=== PATIENT | female | born 1985 | race Caucasian/White ===

== ENCOUNTER 2024-12-22 13:18 | Observation (INO) | payer BC, OTHER, SELFPAY ==
[2024-12-22 13:39] VITALS: BP 111/58; PULSE 96
[2024-12-22 13:56] LABS: ROM Kit Lot # 57807112; ROM Swab Mixed By: GARCN1; Swb Mxed in Solvent 1 min? Yes
[2024-12-22 14:00] VITALS: BMI 33.6
[2024-12-22 14:02] VITALS: BP 111/58; PULSE 96; RESP 17; RESP 99; TEMP 36.9
[2024-12-22 14:05] LABS: Rupture of Fetal Membranes Negative (Negative)
== END 2024-12-22 14:27 | disposition home or self-care (01) ==
PROVIDERS: Admitting Provider Obstetrics & Gynecology; Visit Provider Obstetrics & Gynecology
DX: Z34.83 Encounter for supervision of other normal pregnancy, third trimester (principal); Z3A.30 30 weeks gestation of pregnancy
CPT/HCPCS: 59025; 59899; 84112

== ENCOUNTER 2025-01-27 15:22 | Observation (INO) | payer BC, OTHER, SELFPAY ==
[2025-01-27 15:22] VITALS: BP 131/73; PULSE 96; RESP 16; RESP 97; TEMP 36.6
[2025-01-27 15:39] VITALS: BP 131/73; PULSE 96
[2025-01-27 15:51] VITALS: BP 103/51; PULSE 105
[2025-01-27 16:01] VITALS: BP 90/47; PULSE 93
[2025-01-27 16:11] VITALS: BP 95/54; PULSE 99
[2025-01-27 16:21] VITALS: BP 100/55; PULSE 100
--- NOTE | 2025-01-27 16:36 | ESPR_ITS ---
Documentation for date of: 01/27/25 OB Labor Progress Note Assessment and Plan Comments: Triage Note Claudia is a 39yo with SIUP at 35+wk presenting to L&D for abdominal cramping. No lof, no vaginal bleeding. Normal movement. Current : PNC with Dr. Dang. Taking ASA for AMA. Previous pregnancies: history of 1 prior uncomplicated vaginal delivery at term ROS negative other than what was described above. Vitals wnl, afebrile General: well developed, well nourished, no acute distress, conversant Cardiac: normal heart rate Lungs: breathing without distress Abdomen: soft, gravid, non-tender, no rebound or guarding Extremities: no pain with palpation of calves SCE: closed/thick/high NST: Reactive, +accels, 1 variable decel, mod jhonathan [place]: no ctx pattern Bedside OB ultrasound by Dr. Morrison: SIUP with cephalic presentation, +FCA, active movement, anterior placenta, RAGINI 11cm Assessment: Claudia is a 39yo with SIUP at 35+wk with no evidence of labor based on SCE and toco. Vitals wnl, benign exam. Reassuring status. Plan: -Discussed findings and diagnosis with patient, answered all questions to her apparent satisfaction -Continue routine follow up with Dr. Dang next week -Discussed return precautions -Safe for discharge home at this time Sandi Morrison MD
[2025-01-27 16:39] VITALS: BMI 34.9
== END 2025-01-27 16:40 | disposition home or self-care (01) ==
PROVIDERS: Admitting Provider Obstetrics & Gynecology; Visit Provider Obstetrics & Gynecology
DX: O26.893 Other specified pregnancy related conditions, third trimester (principal); Z3A.35 35 weeks gestation of pregnancy; R10.2 Pelvic and perineal pain
CPT/HCPCS: 59025; 59899

== ENCOUNTER 2025-02-07 00:08 | Observation (INO) | payer BC, OTHER, SELFPAY ==
[2025-02-07 00:14] VITALS: BP 116/70; PULSE 71; PULSE 78; RESP 18; TEMP 36.5; O2SAT 99
[2025-02-07 00:23] VITALS: BMI 36.0
[2025-02-07 00:46] VITALS: BP 119/75; PULSE 76
[2025-02-07 01:17] VITALS: BP 111/73; PULSE 82
[2025-02-07 01:46] VITALS: BP 118/67; PULSE 75
[2025-02-07 02:18] VITALS: BP 124/72; PULSE 79
[2025-02-07 02:46] VITALS: BP 112/60; PULSE 80
== END 2025-02-07 02:58 | disposition home or self-care (01) ==
PROVIDERS: Admitting Provider Obstetrics & Gynecology; Visit Provider Obstetrics & Gynecology
DX: O47.03 False labor before 37 completed weeks of gestation, third trimester (principal); Z3A.36 36 weeks gestation of pregnancy
CPT/HCPCS: 59025; 59899

== ENCOUNTER 2025-02-07 07:10 | Observation (INO) | payer BC, OTHER, SELFPAY ==
[2025-02-07 07:10] VITALS: BP 116/69; PULSE 81; RESP 18; TEMP 36.5; O2SAT 96
[2025-02-07 07:20] VITALS: BP 115/69; PULSE 81; RESP 18; RESP 96; TEMP 36.5; BMI 36.0
[2025-02-07 08:38] VITALS: BP 108/63; PULSE 75; RESP 18; TEMP 36.5; O2SAT 99
== END 2025-02-07 08:48 | disposition home or self-care (01) ==
LOC: S4SN 07:24 → S4NX 07:32 → S4SX 07:33
PROVIDERS: Admitting Provider Specialist; PCP Specialist; Referring Provider Specialist; Visit Provider Specialist
DX: O47.1 False labor at or after 37 completed weeks of gestation (principal); Z3A.36 36 weeks gestation of pregnancy
CPT/HCPCS: 59025; 59899

== ENCOUNTER 2025-02-09 08:02 | Observation (INO) | payer BC, OTHER, SELFPAY ==
[2025-02-09 08:10] VITALS: BP 123/69; PULSE 76
[2025-02-09 08:47] VITALS: BP 123/69; PULSE 76; RESP 18; RESP 97; TEMP 36.6; BMI 35.1
== END 2025-02-09 09:20 | disposition home or self-care (01) ==
PROVIDERS: Admitting Provider Obstetrics & Gynecology; Visit Provider Obstetrics & Gynecology
DX: O47.1 False labor at or after 37 completed weeks of gestation (principal); Z3A.37 37 weeks gestation of pregnancy
CPT/HCPCS: 59899

== ENCOUNTER 2025-02-17 07:04 | Observation (INO) | payer BC, OTHER, SELFPAY ==
[2025-02-17 07:05] VITALS: BP 108/59; PULSE 71; RESP 18; RESP 98; TEMP 36.4; BMI 35.6
[2025-02-17 07:08] VITALS: PULSE 77; O2SAT 98
[2025-02-17 07:09] VITALS: BP 108/59; PULSE 71
[2025-02-17 07:38] VITALS: BP 102/69; PULSE 76
[2025-02-17 08:08] VITALS: BP 121/68; PULSE 73
[2025-02-17 08:38] VITALS: BP 100/64; PULSE 71
[2025-02-17 09:13] VITALS: BMI 34.7
== END 2025-02-17 09:20 | disposition home or self-care (01) ==
PROVIDERS: Admitting Provider Specialist; Visit Provider Specialist
DX: Z34.90 Encounter for supervision of normal pregnancy, unspecified, unspecified trimester (principal); Z3A.00 Weeks of gestation of pregnancy not specified
CPT/HCPCS: 59025; 59899; 85025; 86780; 86850; 86900; 86901

== ENCOUNTER 2025-02-23 16:32 | Observation (INO) | payer BC, OTHER, SELFPAY ==
[2025-02-23 16:36] VITALS: BP 113/75; PULSE 77; RESP 18; RESP 98; TEMP 36.6; BMI 36.1
[2025-02-23 16:41] VITALS: BP 113/75; PULSE 77
== END 2025-02-23 18:20 | disposition home or self-care (01) ==
PROVIDERS: Admitting Provider Specialist; Visit Provider Specialist
DX: O47.1 False labor at or after 37 completed weeks of gestation (principal); Z3A.39 39 weeks gestation of pregnancy
CPT/HCPCS: 59025; 59899; G0378

== ENCOUNTER 2025-02-23 21:16 | Inpatient (IN) | payer BC, OTHER, SELFPAY ==
[2025-02-23] VITALS (35 sets, daily range): BP systolic 114–154; BP diastolic 58–80; PULSE 70–94; RESP 18–99; TEMP 36.7–36.8; O2SAT 94–100; BMI 36.5
--- NOTE | 2025-02-23 21:41 | PD.LDHP ---
Documentation for date of: 02/23/25 OB Labor/Induct. HPI History of Present Illness Chief complaint: Labor pains : 3 Para: 1 Term pregnancies: 1 pregnancies: 0 Living children: 1 History of Abortions: Spontaneous and Elective: 1 History of Vaginal deliveries: 1 History of sections: No History of : No ABHIJIT: 03/01/25 Gestational Age (weeks): 39 Gestational Age (days): 1 History of present illness: 40-year-old 3 para 1-0-1-1 with intrauterine at 39 weeks and 1 day who presents to labor and delivery complaining of contractions and is noted by the RN to be 7 cm vertex with intact membranes. Patient has category 1 tracing. She denied she reports normal movement. Her group B strep colonization at 36 weeks was positive. Her care was uncomplicated. She had a normal maternal- medicine ultrasound on October 25. History of Present Dating criteria: LMP confirmed by 1st trimester US Obstetrical complications: none Medical complications: other (Anxiety disorder on buspirone 5 mg p.o. daily) Narrative: Past medical history: Anxiety disorder, Depression, Dental Abscess. Past surgical history: Denies OB history: Previous full-term normal vaginal delivery without complication 8lbs Family history: Mom : breast cancer . Daughter has juvenile idiopathic arthritis knee. Meds: multivitamin 1 p.o. daily, aspirin 81 mg 1 p.o. daily, buspirone 5 mg 1 p.o. daily Labs Narrative: Group B strep positive at 36 to 37 weeks Review of Systems Review of Systems Narrative Review of Systems: Denies any leaking or bleeding. Reports normal movement. She denies any chest pain palpitations cough fever shortness of breath or lower extremity pain. Past Medical History Surgical History SURGICAL: Negative Section Social History SOCIAL: Denies any alcohol drug use or smoking Meds Home Medications and Allergies Home Medications ?Medication ?Instructions ?Recorded ?Confirmed ?Type buspirone 5 mg tablet 5 mg PO BID 12/22/24 02/07/25 History vits no.130-ferrous fum 1 tab PO QDAY 12/22/24 02/07/25 History 27 mg iron-folic acid 800 mcg tablet ( Vitamin) Allergies Allergy/AdvReac Type Severity Reaction Status Date / Time No Known Allergies Allergy Verified 02/17/25 09:26 OB Exam Physical Exam Vital signs: 113/75 HR 77 RR 18 T 97.8. Routine HEENT Exam Comments: Oropharynx and sclera clear Routine Respiratory Exam Comments: Clear to auscultation bilaterally Routine Cardiovascular Exam Comments: Regular rate and rhythm Routine Abdominal Exam Comments: Gravid term size consistent with estimated weight 3500 g Detailed Labor and Delivery Exam Dilation (cm): 7 Presentation: Vertex Membranes: intact Comments: Per RN exam Routine Extremities Exam Comments: Nontender or edema Routine Skin Exam Comments: No gross rashes or lesions Routine Neurological Exam Comments: No focal deficit OB Results Impressions Impression: Intrauterine at 39 weeks and 1 day Active labor Group B strep vaginal rectal colonization at 36 to 37 weeks Anticipate spontaneous vaginal delivery Informed consent was obtained. The patient was made aware of the risk complications alternatives and benefits of operative vaginal delivery and delivery agrees with these modes of delivery if indicated,
[2025-02-23] MEDS: Ampicillin Inj 2,000 MG in SODIUM CHLORIDE 0.9% (POP) 100 ML 200 MG IV (22:00)
[2025-02-23 22:13] LABS: Basophils % (Auto) 0 % (0-2.5); Eosinophils % (Auto) 0 % (0-10); Hematocrit 35.8 % (36.0-46.0); Hemoglobin 12.9 g/dL (12.0-16.0); Immature Granulocytes % (Auto) 1 % (0-0); Immature Granulocytes Auto 0.13 Thou/mm3 (0.00-0.00); Lymphocytes # (Auto) 2.4 Thou/mm3 (1.0-4.8); Lymphocytes % (Auto) 19 % (10-50); Mean Corpuscular Hemoglobin 30.9 pg (25.0-35.0); Mean Corpuscular Volume 86 fL (80-100); Monocytes # (Auto) 0.8 Thou/mm3 (0.0-0.8); Monocytes % (Auto) 6 % (0-12); Neutrophils # (Auto) 9.7 Thou/mm3 (1.8-7.7); Neutrophils % (Auto) 74 % (37-80); Nucleated Red Blood Cell % 0 /100 WBC (0); Platelet Count 321 Thou/mm3 (140-440); RDW Standard Deviation 40.6 fL (36.4-46.3); Red Blood Count 4.18 Miln/mm3 (4.00-5.20); White Blood Count 13.1 Thou/mm3 (3.6-11.0)
[2025-02-23 22:53] LABS: Syphilis Nonreactive (Nonreactive)
[2025-02-24] VITALS (125 sets, daily range): BP systolic 94–160; BP diastolic 57–97; PULSE 62–95; RESP 17–19; TEMP 36.5–36.9; O2SAT 91–100
--- NOTE | 2025-02-24 01:25 | PD.LDPN ---
Documentation for date of: 02/24/25 OB Labor Progress Note Pain Control Comments: Epidural Pelvic Exam Dilation (cm): 8 Effacement (%): 80 station: 0 Amniotic membrane status: Ruptured Comments: AROM , thin meconium Contractions Monitor mode: External Contraction frequency: 5 Contraction intensity: Moderate Status status: Category ll Assessment and Plan Comments: Anticipate Augment with Pitocin as necessary Aminoinfusion for variable decelerations.
[2025-02-24] MEDS: Ampicillin Inj 1,000 MG in SODIUM CHLORIDE 0.9% (Popper) 50 ML 50 MG IV (01:57)
[2025-02-24] MEDS: ONDANSETRON INJ 2 MG/ML INJ 2 ML 4 MG IVP (02:14)
[2025-02-24] MEDS: MINERAL OIL 30 ML UDC TOP (04:57)
[2025-02-24] MEDS: OXYTOCIN in NS 20 units 20 UNIT/1,000 ML BAG 125 UNIT IV (05:05)
--- NOTE | 2025-02-24 05:40 | OBDSUM_ITS ---
Data ([facility]) Data Hx Section: No : 3 Term: 1 : 0 Livin Abortions: Spontaneous & Theraputic: 1 Delivery Data ([facility]) Labor Data Initiation of labor: Spontaneous Induction/Augmentation Agent: Artificial ROM ROM date: 02/24/25 ROM time: 01:12 Amniotic membrane rupture type: Spontaneous Amniotic fluid description: Light Meconium Delivery Data EDC: 03/02/25 EDC calculated by:: LMP/early US confirmation Onset of labor date: 02/23/25 Onset of labor time: 04:25 Complete dilation date: 02/24/25 Complete dilation time: 04:50 delivery date: 02/24/25 [place] delivery time: 05:00 Gestational age (weeks): 39 Gestational age (days): 1 Placenta delivery date: 02/24/25 Placenta delivery time: 05:05 Stage 1 total time: Labor - Stage 1 Duration 24 hours and 25 minutes Delivered by: [place] Delivery nurse: VADIM Riddle [place] nurse: VADIM [employer] Maker at delivery: No Support person(s) at delivery: FOB Delivery Method Delivery method: Normal Vaginal Delivery Presentation: Vertex position: OA Anesthesia Type Anesthesia Type: Epidural Placenta Placenta delivery description: Manual Removal Cord blood sent to lab: Yes cord blood collection: Cord Blood Type Episiotomy Episiotomy description: None Lacerations #1: Perineal: 2nd degree Perineal repair Sutures used for repair: 3.0 Chromic EBL Estimated blood loss (ml): 200 Umbilical Cord cord description: 3 Vessels Complications Complications: None Data ([facility]) [place] Data order: 1 [place]'s gender: Female Identification band number: [id number] weight (gms): 8 lb 2.866 oz Weight (pounds): 8 lbs and 2.9 ozs 1 minute: 9 5 minutes: 9 10 minutes: 9
--- NOTE | 2025-02-24 05:40 | PD.LDDS ---
DS: Providers Provider Date of admission: 02/23/25 21:16 Primary care physician: Haja Kline MD Admitting Provider: Michele Dang MD Attending Provider on Admission: Michele Dang MD Attending Provider on DC: Michele Dang MD Discharging Provider: Michele Dang MD DS: Diagnosis Problem List Completed Was Problem List Reviewed/Reconciled?: Yes Summary/Hosp Course Brief History: 40-year-old 3 para 1-0-1-1 with intrauterine at 39 weeks and 1 day who presents to labor and delivery complaining of contractions and is noted by the RN to be 7 cm vertex with intact membranes. Patient has category 1 tracing. She denied she reports normal movement. Her group B strep colonization at 36 weeks was positive. Her care was uncomplicated. She had a normal maternal- medicine ultrasound on October 25. Peripartum Data Delivery Method: Normal Vaginal Delivery Episiotomy Description: None 1: Gender: Female Time Spent with Patient Time attestation: Total time spent providing and/or coordinating discharge services: Exam Vital Signs Temp Pulse Resp BP Pulse Ox O2 Del Method 98.1 F 89 18 146/61 H 96 Room Air 02/24/25 03:30 02/24/25 05:32 02/24/25 01:30 02/24/25 05:32 02/24/25 05:39 02/24/25 01:30 Discharge Plan Plan Patient Disposition: HOME (Self Care) Patient condition on transfer: Stable Prescriptions/Referrals Prescriptions/Med Rec: New ibuprofen 600 mg tablet 600 mg PO Q6H PRN (Reason: pain) Qty: 30 0RF Continued buspirone 5 mg tablet 5 mg PO BID Patient Comments: TAKE 1 TABLET BY MOUTH TWICE A DAY Vitamin 27 mg iron- 800 mcg tablet 1 tab PO QDAY Referrals: Haja Kline MD [Primary Care Provider] - Patient/Caregiver Discharge Instructions Discharge Activity: activity as tolerated Other Discharge Activity Instructions:: Follow up office 6 weeks. Print Language: Turkish Stand Alone Forms: Deloris Award Info., Patient Portal Info Letter, Work/Release Restrictions Planned Discharge Date 02/25/25
[2025-02-24] MEDS: IBUPROFEN TAB 400 MG TABLET 800 MG PO ×2 (07:38→16:26)
[2025-02-24] MEDS: DOCUSATE SOD 100 MG CAPSULE PO (07:47)
[2025-02-24] MEDS: BENZO/LANO/ALOE (Dermoplast) 60 GM CAN 1 SPRAY TOP (08:24)
[2025-02-24] MEDS: BusPIRone HCL 5 MG TABLET PO ×2 (09:07→21:47)
[2025-02-24 11:15] LABS: Basophils % (Auto) 0 % (0-2.5); Eosinophils % (Auto) 0 % (0-10); Hematocrit 32.4 % (36.0-46.0); Hemoglobin 11.4 g/dL (12.0-16.0); Immature Granulocytes % (Auto) 1 % (0-0); Immature Granulocytes Auto 0.11 Thou/mm3 (0.00-0.00); Lymphocytes # (Auto) 2.1 Thou/mm3 (1.0-4.8); Lymphocytes % (Auto) 12 % (10-50); Mean Corpuscular HGB Conc 35.2 g/dl (31.0-37.0); Mean Corpuscular Hemoglobin 30.6 pg (25.0-35.0); Mean Corpuscular Volume 87 fL (80-100); Monocytes # (Auto) 0.8 Thou/mm3 (0.0-0.8); Monocytes % (Auto) 4 % (0-12); Neutrophils # (Auto) 15.2 Thou/mm3 (1.8-7.7); Neutrophils % (Auto) 83 % (37-80); Nucleated Red Blood Cell % 0 /100 WBC (0); Platelet Count 258 Thou/mm3 (140-440); RDW Standard Deviation 41.1 fL (36.4-46.3); Red Blood Count 3.73 Miln/mm3 (4.00-5.20); White Blood Count 18.3 Thou/mm3 (3.6-11.0)
[2025-02-24] MEDS: ACETAMINOPHEN 325 MG TABLET 650 MG PO ×2 (11:38→21:46)
[2025-02-25 00:11] VITALS: BP 115/70; PULSE 80; RESP 20; TEMP 36.6; O2SAT 97
--- NOTE | 2025-02-25 02:54 | PC.NURSE ---
02/25/25 0011 pt educated on the use of artificial nipple, risk of nipple confusion as well as alternate ways to sooth the baby. Pt still requests pacifier. One was provided to the pt.
[2025-02-25 05:00] VITALS: BP 107/72; PULSE 76; RESP 18; TEMP 36.6; O2SAT 97
[2025-02-25] MEDS: IBUPROFEN TAB 400 MG TABLET 800 MG PO (05:23)
--- NOTE | 2025-02-25 07:34 | PC.SS ---
REPAIRER MAINTENANCE BUILDING conducted bedside contact with the patient to address nursing referral indicating patient possessed history of anxiety.? At bedside with patient was spouse, Daniel Arnold.? Patient gave permission for FOB to be present during discussion.? REPAIRER MAINTENANCE BUILDING introduced self and role.? REPAIRER MAINTENANCE BUILDING discussed basis of referral.? Patient confirmed history of anxiety.? Patient informed REPAIRER MAINTENANCE BUILDING that she was participating in counseling and prescribed medication to address mood disorder.? Patient reports no impairment with daily functioning.? Spouse confirmed no barrier to patient?s ability to completing daily tasks to include employment and parenting.? Infant, Pierce; is the patient?s second child.? Other daughter is 3 years old.? delivered naturally.? OB is Dr. Dang.? Patient consistent with OB services.? Patient plans on .? Patient is not aligned with WIC, TANF or SNAP.? Patient denies history of alcohol/drug abuse.? Patient denies CWS intervention.? Patient denies episodes of domestic violence.? Patient has access to appropriate supplies and equipment; to include a car seat.? FOB will provide transportation upon discharge.? Patient describes possessing support system consisting of FOB and extended family.? REPAIRER MAINTENANCE BUILDING provided the patient with community resources to include [facility] and Warm Line.? No further intervention required at this time, social human services assistants will be available to address any further concerns.? REPAIRER MAINTENANCE BUILDING updated bedside nurse.?
[2025-02-25 08:00] VITALS: BP 103/66; PULSE 75; RESP 16; TEMP 37.2; O2SAT 97
[2025-02-25] MEDS: BusPIRone HCL 5 MG TABLET PO (09:07)
[2025-02-25] MEDS: DOCUSATE SOD 100 MG CAPSULE PO (09:52)
[2025-02-25] MEDS: ACETAMINOPHEN 325 MG TABLET 650 MG PO (09:59)
[2025-02-25] MEDS: HYDROcodone/APAP 5/325 TABLET 2 TAB PO (10:49)
[2025-02-25 12:45] VITALS: BP 106/68; PULSE 79; RESP 18; TEMP 36.6; O2SAT 98
--- NOTE | 2025-02-25 12:47 | ESDS_ITS ---
DS: Providers Provider Date of admission: 02/23/25 21:40 Primary care physician: Haja Kline MD Admitting Provider: Michele Dang MD Attending Provider on Admission: Joey Lopez MD Consults: 02/24/25 06:00 Referral Routine Comment: Attending Provider on DC: Joey Lopez MD Discharging Provider: Joey Lopez MD DS: Diagnosis Discharge Diagnosis (1) Vaginal delivery: Status: Acute (2) 39 weeks gestation of : Status: Acute Problem List Completed Was Problem List Reviewed/Reconciled?: Yes Summary/Hosp Course Brief History: 40-year-old 3 para 1-0-1-1 with intrauterine at 39 weeks and 1 day who presents to labor and delivery complaining of contractions and is noted by the RN to be 7 cm vertex with intact membranes. Patient has category 1 tracing. She denied she reports normal movement. Her group B strep colonization at 36 weeks was positive. Her care was uncomplicated. She had a normal maternal- medicine ultrasound on October 25. Peripartum Data Delivery Method: Normal Vaginal Delivery Episiotomy Description: None Time Spent with Patient Time attestation: Total time spent providing and/or coordinating discharge services: Exam Vital Signs Temp Pulse Resp BP Pulse Ox O2 Del Method 97.8 F 76 18 107/72 97 Room Air 02/25/25 05:00 02/25/25 05:00 02/25/25 05:00 02/25/25 05:00 02/25/25 05:00 02/25/25 05:00 Discharge Plan Plan Patient Disposition: HOME (Self Care) Patient condition on transfer: Stable Prescriptions/Referrals Prescriptions/Med Rec: New ibuprofen 600 mg tablet 600 mg PO Q6H PRN (Reason: pain) Qty: 30 0RF Continued buspirone 5 mg tablet 5 mg PO BID Patient Comments: TAKE 1 TABLET BY MOUTH TWICE A DAY Vitamin 27 mg iron- 800 mcg tablet 1 tab PO QDAY Referrals: Michele Dang MD [Physician] - Haja Kline MD [Primary Care Provider] - Patient/Caregiver Discharge Instructions Discharge Activity: activity as tolerated Other Discharge Activity Instructions:: Follow up office 6 weeks. Print Language: Serbian Stand Alone Forms: Deloris Award Info., Patient Portal Info Letter, Work/Release Restrictions Discharge Order Discharge Orders: Discharge (Routine); Ordered 02/25/25 Ordered By: Joey Lopez Planned Discharge Date 02/25/25
--- NOTE | 2025-02-25 12:47 | PD.LDPPPRG ---
Subjective Subjective Interval history: Delivery type: Patient doing well this morning. No acute complaints. Ambulating, tolerating p.o. and voiding without difficulty. HTN/Pre-Eclampsia screen: No chest pain, shortness of breath, headache, visual changes, epigastric or right upper quadrant pain. Breast-feeding, lochia diminishing. Bowel: Flatus+/ BM+ Exam Vital Signs Temp Pulse Resp BP Pulse Ox O2 Del Method 97.8 F 76 18 107/72 97 Room Air 02/25/25 05:00 02/25/25 05:00 02/25/25 05:00 02/25/25 05:00 02/25/25 05:00 02/25/25 05:00 Constitutional Constitutional: no acute distress Routine HEENT Exam Head: Present normocephalic and atraumatic Eye: Present EOMI and PERRL ENT: Present mucous membranes moist Routine Neck Exam Neck: Present supple and trachea midline Routine Respiratory Exam Respiratory: Present chest non-tender, lungs clear, normal breath sounds and no resp distress Routine Cardiovascular Exam Cardiovascular: Present RRR Routine Abdominal Exam Abdominal: Present soft and normoactive bowel sounds Routine Extremities Exam Extremities: Present full ROM Routine Skin Exam Skin: Present intact, dry and warm Routine Neurological Exam Neurological: Present alert, oriented X3 and CN II-XII intact Routine Psychiatric Exam Psychiatric: Present normal affect and normal thought process Objective Labs 02/24/25 10:51 Assessment & Plan Problem List (1) Vaginal delivery: Status: Acute Assessment and plan: 1. Continue routine /post-op care 2. Labs reviewed, cbc appropriate 3. Remove dressing/[place] 4. Encourage to ambulate, shower 5. Encourage PO intake, breast feeding Time Spent With Patient Time: Total time spent is greater than 50% in coordination of care (as documented) at patient's floor/unit and/or counseling patient:
--- NOTE | 2025-02-25 17:15 | PC.SS ---
CITY DRIVER received referral that patient scored a 10 on post- depression screening.? CITY DRIVER introduced self and role.? CITY DRIVER reviewed with patient basis of referral.? Patient informed CITY DRIVER that she answered screening openly and honestly.? Patient relayed that she experienced eventful evening due to infant?s fussiness and to the patient?s lack of sleep.? Patient stated that her level of anxiety was heightened in part to decrease in buspar medication (10mg to 5mg) and hormonal imbalance.? Patient stated that support from spouse assisted the patient in achieving relax state.? CITY DRIVER confirmed that sleep deprivation can impact individual?s emotional status negatively.? Patient confirmed that she will have access to spouse?s support upon return home in addition patient?s in-laws will be staying to offer assistance.? Patient denied current intent/plan of SI/HI.? Patient described feeling confident in meeting needs of and addressing patient?s own needs.? CITY DRIVER reviewed with patient contact information to Warm Line and 24 hour crisis resource.? Patient engaged and responsive throughout discussion.? CITY DRIVER provided update to bedside nurse.? Plan is for the patient to discharge home today.?
== END 2025-02-25 15:40 | disposition home or self-care (01) | DRG 807 ==
LOC: S4SX 02-24 07:58 → S4NX 02-24 08:17
PROVIDERS: Admitting Provider Specialist; PCP Internal Medicine; Visit Provider Obstetrics & Gynecology
DX: O99.824 Streptococcus B carrier state complicating childbirth (principal); Z37.0 Single live birth; Z3A.39 39 weeks gestation of pregnancy; O70.1 Second degree perineal laceration during delivery; O77.0 Labor and delivery complicated by meconium in amniotic fluid; F41.9 Anxiety disorder, unspecified; O99.344 Other mental disorders complicating childbirth; O76 Abnormality in fetal heart rate and rhythm complicating labor and delivery; Z79.899 Other long term (current) drug therapy
CPT/HCPCS: 36415; 59025; 59409; 85025; 86780; 86850; 86900; 86901; 94762; J0290; J2405; J2590; J2795; J3010; J7050; A9270

== ENCOUNTER → 2025-09-09 | Outpatient (CLI) | payer BC, OTHER, SELFPAY ==
[2025-09-09 10:12] LABS: Collection Type, Urine Clean Catch; RBC,Urine 0 /hpf (0-3); WBC,Urine 0 /hpf (0-5)
[2025-09-09 10:26] LABS: Basophils # (Auto) 0.0 Thou/mm3 (0.0-0.2); Basophils % (Auto) 1 % (0-2.5); Eosinophils # (Auto) 0.1 Thou/mm3 (0.0-0.5); Eosinophils % (Auto) 1 % (0-10); Hematocrit 39.9 % (36.0-46.0); Hemoglobin 13.4 g/dL (12.0-16.0); Immature Granulocytes Auto 0.05 Thou/mm3 (0.00-0.00); Lymphocytes # (Auto) 2.2 Thou/mm3 (1.0-4.8); Lymphocytes % (Auto) 31 % (10-50); Mean Corpuscular HGB Conc 33.6 g/dl (31.0-37.0); Mean Corpuscular Hemoglobin 29.4 pg (25.0-35.0); Mean Corpuscular Volume 88 fL (80-100); Monocytes # (Auto) 0.5 Thou/mm3 (0.0-0.8); Monocytes % (Auto) 7 % (0-12); Neutrophils # (Auto) 4.3 Thou/mm3 (1.8-7.7); Neutrophils % (Auto) 60 % (37-80); Nucleated Red Blood Cell # 0.00 Thou/mm3 (0.00-0.00); Nucleated Red Blood Cell % 0 /100 WBC (0); Platelet Count 390 Thou/mm3 (140-440); RDW Standard Deviation 37.8 fL (36.4-46.3); Red Blood Count 4.56 Miln/mm3 (4.00-5.20); White Blood Count 7.1 Thou/mm3 (3.6-11.0)
[2025-09-09 10:44] LABS: Bacteria,Urine Rare; Bilirubin,Urine Negative (Negative); Blood,Urine Negative (Negative); Clarity,Urine Clear (Clear/Hazy); Color,Urine Yellow (Lt Yel-Yel); Glucose, Urine Negative (Negative); Ketones,Urine Negative (Negative); Leukocyte Esterase,Urine Negative (Negative); Nitrite,Urine Negative (Negative); PH,Urine 6.0 (5.0-7.0); Protein,Urine Negative (Neg - Trace); Specific Gravity,Urine 1.026 (1.001-1.035); Squamous Epithelial Cell,Urine 10 /hpf (0-5); Urobilinogen,Urine Negative mg/dL (0.0-1.0)
[2025-09-09 10:46] LABS: Glucose Estimated Average 105 mg/dL (80-131); Hemoglobin A1C 5.3 % Hgb (4.8-6.0)
[2025-09-09 10:52] LABS: Alanine Aminotransferase 58 U/L (10-49); Albumin, Serum 4.3 gm/dL (3.5-5.0); Albumin/Globulin Ratio 1.6 (1.2-2.2); Alkaline Phosphatase 98 U/L (46-116); Anion Gap 8 (7-16); Aspartate Amino Transferase 31 U/L (0-34); BUN/Creatinine Ratio 19 Ratio (12-20); Bilirubin,Total 0.3 mg/dL (0.3-1.2); Blood Urea Nitrogen 15 mg/dL (9-23); Calcium 9.7 mg/dL (8.3-10.6); Calcium (Corrected) 9.7 mg/dL (8.5-10.1); Carbon Dioxide 27.0 mMol/L (20.0-31.0); Cardiac Risk Estimate 3.8 RATIO (3.7-5.6); Chloride 105 mMol/L (98-107); Cholesterol 214 mg/dL (132-200); Creatinine (Component) 0.8 mg/dL (0.6-1.3); Globulin 2.7 gm/dL (2.3-3.5); Glucose 84 mg/dL (74-106); HDL Cholesterol 57 mg/dL (40-60); LDL Cholesterol,Calculated 116 mg/dL (0-130); Osmolality,Calculated 279 (275-295); Potassium 4.5 mMol/L (3.4-5.1); Sodium 140 mMol/L (136-145); Thyroid Stimulating Hormone 0.81 uIU/mL (0.55-4.78); Total Protein 7.0 gm/dL (5.7-8.2); Triglycerides 206 mg/dL (30-150); Uric Acid 5.5 mg/dL (3.1-7.8); eGFR > 60 See Note
[2025-09-09 10:53] LABS: Ferritin 45 ng/mL (7.3-270.7)
[2025-09-09 10:54] LABS: Vitamin B12 703 pg/mL (211-911); Vitamin D 25 Hydroxy Total 22.3 ng/mL (7.3-40.2)
== END | disposition home or self-care (01) ==
LOC: COPL 09:12
PROVIDERS: PCP Internal Medicine; Referring Provider Internal Medicine; Visit Provider Internal Medicine
DX: Z00.00 Encounter for general adult medical examination without abnormal findings (principal)
CPT/HCPCS: 36415; 80053; 80061; 81001; 82306; 82607; 82728; 83036; 84443; 84550; 85025